=== PATIENT | male | born 1995 | race Two or more races ===

== ENCOUNTER 2025-08-11 11:37 | Emergency (ER) | payer SELFPAY ==
[~2025-08-11] VITALS: Ht 172.7 cm; Wt 78.0 kg
[2025-08-11 11:41] VITALS: O2SAT 100
[2025-08-11 12:45] LABS: BASOPHILS % 0.4 % (0.0-2.0); EOSINOPHILS % 0.6 % (0.0-5.0); HEMATOCRIT. 41.5 % (36.0-48.0); HEMOGLOBIN. 13.9 g/dL (12.0-16.0); LYMPHOCYTES % 7.2 % (20.0-50.0); MEAN PLATELET VOLUME 8.9 fl (7.4-10.4); MONOCYTES % 5.1 % (2.0-8.0); NEUTROPHILS % 86.7 % (40.0-76.0); PLATELET 183 x1000/uL (130-400); RED BLOOD CELL COUNT 4.66 mill/uL (4.2-5.4); RED CELL DISTRIBUTION WIDTH 12.9 % (11.6-14.6)
[2025-08-11 12:56] LABS: CREATININE 0.8 mg/dL (0.6-1.0)
[2025-08-11 12:57] LABS: ETHANOL BLOOD < 10 mg/dL (<10); UREA NITROGEN BLOOD 9 mg/dL (9-23)
[2025-08-11 13:53] VITALS: BP 113/65; PULSE 88; RESP 14; O2SAT 100
== END 2025-08-11 13:56 | disposition home or self-care (01) ==
LOC: ER 11:37 → EDSEX 11:37 → EDBD 11:37 → EDBEDREQ 13:17 → EDBEDREQTM 13:17 → ER 13:56
DX: G93.41 Metabolic encephalopathy (principal); Z79.899 Other long term (current) drug therapy
CPT/HCPCS: 36415; 71045; 80048; 80320; 85025; 93005; 99285; G0480